=== PATIENT | female | born 2005 | race African-American/Black ===

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

== ENCOUNTER 2023-05-09 21:10 | Emergency (ER) | payer OTHER ==
[~2023-05-09] VITALS: Ht 162.6 cm; Wt 77.2 kg
[~2023-05-09 21:10] MED LIST: ONDA-144 PO
[2023-05-09 22:59] VITALS: BP 113/65; PULSE 70; RESP 17; TEMP 98; O2SAT 96
[2023-05-09] MEDS ORDERED: methylPREDNISolone SOD SUCC 125 MG/2 ML VL IM ONE (23:00)
[2023-05-09] MEDS ORDERED: cefTRIAXone SOD 1,000 MG VL IM ONE (23:00)
== END 2023-05-10 00:07 | disposition home or self-care (01) ==
LOC: ER 21:10
DX: H66.92 Otitis media, unspecified, left ear (principal); J03.90 Acute tonsillitis, unspecified; J45.909 Unspecified asthma, uncomplicated; Z79.899 Other long term (current) drug therapy
CPT/HCPCS: 96372; 99284; J0696; J2930